=== PATIENT | male | born 1955 | race Caucasian/White ===

== ENCOUNTER 2023-02-22 10:36 | Day surgery (SDC) | payer MEDICARE, OTHER ==
[~2023-02-22] VITALS: Ht 165.1 cm; Wt 95.3 kg
[~2023-02-22 10:36] MED LIST: ALLO-45 PO; ASPI-1450 PO; ATOR40TA28 PO; BENA20TA83 PO; BENZ-227 PO; D-ME473S53 PO; DICL100G60 TP; FERR325T23 PO; FOLI-130 PO; FURO40 PO; GABA-1216 PO; GEMF-77 PO; GLIP10TA10 PO; GLYB-145 PO; HYDR25TA2 PO; INSU100I26 SQ; METF-1211 PO; METO-327 PO; OMEP20 PO; SITA25 PO; SODIUM CHLORIDE 0.9% 1,000 ML IV ONE
[2023-02-22] MEDS ORDERED: PROPOFOL 1% 20 ML VIAL IVP ONE (10:37)
[2023-02-22] MEDS ORDERED: LIDOCAINE/PF 2% 5 ML SYRINGE IVP ONE (10:37)
[2023-02-22] MEDS ORDERED: INSU200I4 SQ (11:41)
[2023-02-22] MEDS ORDERED: LINA5TAB PO (11:41)
[2023-02-22] MEDS ORDERED: CLOP75TA32 PO (11:44)
[2023-02-22 11:47] LABS: GLUCOMETER DEV NAME(LOC) SDS.; GLUCOSE,POINT OF CARE 111 MG/DL (70-110)
== END 2023-02-22 15:00 | disposition home or self-care (01) ==
LOC: SURGERY 10:36
PROVIDERS: ATTEND Internal Medicine Gastroenterology
DX: Z09 Encounter for follow-up examination after completed treatment for conditions other than malignant neoplasm (principal); K63.5 Polyp of colon; K64.8 Other hemorrhoids; R13.10 Dysphagia, unspecified; I10 Essential (primary) hypertension; E11.9 Type 2 diabetes mellitus without complications; Z79.4 Long term (current) use of insulin; K20.90 Esophagitis, unspecified without bleeding; I25.10 Atherosclerotic heart disease of native coronary artery without angina pectoris; Z95.5 Presence of coronary angioplasty implant and graft
CPT/HCPCS: 45385; 43239; 82962; 88305; 93005; C1769; J2704; J3490